=== PATIENT | male | born 1985 | race Caucasian/White ===

== ENCOUNTER 2025-01-16 19:42 | Emergency (ER) | payer BC, MEDICAID ==
[~2025-01-16] VITALS: Ht 175.3 cm; Wt 68.4 kg
[2025-01-16 20:18] VITALS: BP 126/83; PULSE 80; RESP 18; O2SAT 95
[2025-01-16] MEDS ORDERED: IBUP-1456 PO (20:57)
--- NOTE | 2025-01-16 20:57 | ED.PDOC ---
Musculoskeletal HPI Comments 39 YEAR OLD MALE PRESENTS TO ER WITH COMPLAINTS OF RIGHT 2ND TOE PAIN X 1 HOUR. PATIENT REPORTS THAT HE HIT HIS RIGHT 2ND TOE AGAINST A [employer] MAT 1 HOUR PRIOR TO ARRIVAL TO ER WHILE IN [facility] AND HAS SINCE BEEN EXPERIENCING PAIN/SWELLING/BRUISING TO RIGHT 2ND TOE. DENIES USE OF MEDICATIONS FOR CURRENT SYMPTOMS. NOTES HE DOES HAVE NUMBNESS/TINGLING TO RIGHT 2ND TOE AND PRESENTS TO ER AMBULATORY ON ARRIVAL, FAVORING LEFT LEG ON AMBULATION. DENIES ANKLE PAIN OR ANY FURTHER SYMPTOMS/COMPLAINTS Chief Complaint: Lower Extremity Time Seen by MD: 19:51 Primary Care Provider: ENDO Reviewed Notes: Nurses Notes, Medications, Allergies Allergies: Coded Allergies: No Known Drug Allergy (Verified Allergy, Unknown, 01/16/25) Home Meds Active Scripts Ibuprofen (Ibuprofen) 800 Mg Tab, 1 TAB PO TID PRN, #30 TAB 0 Refills Prov:BENJI MERCEDES 01/16/25 Information Source: Patient Mode of Arrival: Ambulatory Past Medical History PAST MEDICAL HISTORY: Denies Surgical History: Denies all surgeries Family History Family History: Unknown Social History Smoker: Non-Smoker Alcohol: Denies ETOH Use Drugs: Denies Drug Use Lives In: Home Constitutional: denies: chills, diaphoresis, fatigue, fever, malaise, sweats, weakness, others EENTM: denies: blurred vision, double vision, ear bleeding, ear discharge, ear drainage, ear pain, ear ringing, eye pain, eye redness, hearing loss, mouth pain, mouth swelling, nasal discharge, nose bleeding, nose congestion, nose pain, photophobia, tearing, throat pain, throat swelling, voice changes, others Respiratory: denies: cough, hemoptysis, orthopnea, SOB at rest, shortness of breath, SOB with excertion, stridor, wheezing, others Cardiovascular: denies: chest pain, dizzy spells, diaphoresis, Dyspnea on exertion, edema, irregular heart beat, left arm pain, lightheadedness, palpitations, PND, syncope, others Gastrointestinal: denies: abdomen distended, abdominal pain, blood streaked bowels, constipated, diarrhea, dysphagia, difficulty swallowing, hematemesis, melena, nausea, poor appetite, poor fluid intake, rectal bleeding, rectal pain, vomiting, others Genitourinary: denies: burning, dysuria, flank pain, frequency, hematuria, incontinence, penile discharge, penile sore, pain, testicle pain, testicle swelling, urgency, others Neurological: denies: dizziness, fainting, headache, left sided numbness, left sided weakness, numbness, paresthesia, pre-existing deficit, right sided numbness, right sided weakness, seizure, speech problems, tingling, tremors, weakness, others Musculoskeletal: reports: others ( STATED IN HPI) Integumetry: reports: others ( STATED IN HPI) Allergic/Immunocompromised: denies: Difficulty Healing, Frequent Infections, Hives, Itching, others Hematologic/Lymphatic: denies: anemia, blood clots, easy bleeding, easy bruising, swollen glands, others Endocrine: denies: excessive hunger, excessive sweating, excessive thirst, excessive urination, flushing, intolerance to cold, intolerance to heat, unexplained weight gain, unexplained weight loss, others Psychiatric: denies: anxiety, bipolar disorder, depression, hopeless, panic disorder, schizophrenia, sleepless, suicidal, others Physical Exam General Appearance: No Apparent Distress HEENT: PERRL/EOMI Neck: Full Range of Motion, Non-Tender, Normal Respiratory: Chest Non-Tender, Lungs Clear, No Accessory Muscle Use, No Respiratory Distress, Normal Breath Sounds Cardiovascular: No Murmur, No Gallop, Regular Rate/Rhythm Breast Exam: Deferred Gastrointestinal: NOT DONE Genitalia: Deferred Pelvic: Deferred Rectal: Deferred Extremities: Normal capillary refill, Normal range of motion Musculoskeletal : Extremity Location: Toe 2 (TTP/MILD SWELLING/ECCHYMOSIS NOTED TO RIGHT 2ND TOE. NO NAILBED INJURY/FURTHER SKIN CHANGES NOTED. PATIENT FAVORS LEFT LEG ON AMBULATION DUE TO PAIN LOCALIZED TO RIGHT 2ND TOE. 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 Was a procedure done?: No Sedation Sedation?: No Differential Diagnosis EXT Differential Diagnosis: Dislocation, Laceration, Neurovascular injury X-Ray, Labs, Meds, VS Vital Signs Date Time Temp Pulse Resp B/P (MAP) Pulse Ox O2 Delivery O2 Flow Rate FiO2 3/12/25 20:18 98.2 80 18 126/83 97 95 PATIENT: LESLEY HARVEYT: [id number]: [id number] : 1985 LOC: ER ROOM / BED: / AGE / SEX: 39 / M ADM STATUS: [facility] ER SERVICE 45 ORDERING PHYSICIAN: BENJI MERCEDES PROCEDURE(s): RTOE2 - R 2ND TOE XRAY REASON: right 2nd toe pain, r/o fracture ORDER NUMBER(s): [id number], ACCESSION NUMBER(s): [id number] EXAMINATIONS: 3 views of the right foot CLINICAL HISTORY: right 2nd toe pain, r/o fracture COMPARISON: None Findings and impression: Comminuted, mildly displaced and angulated fracture of the diaphysis of the 2nd proximal phalanx. ATED BY: BRUNO MACHADO MD DICTATED DATE/TIME: 01/16/252146 SIGNED BY: BRUNO MACHADO MD SIGNED DATE/TIME: 01/16/252146 CC: RIGHT 2ND TOE X-RAY REVIEWED PATIENT NEUROVASCULARLY INTACT AND IN NO DISTRESS PRIOR TO DISCHARGE CARMELA TAPE APPLIED POST-OP SHOE APPLIED ADVISED ON REST/NO STRENUOUS ACTIVITY, ELEVATION AND ALTERNATE ICE ON/OFF NEEDED FOR PAIN/SWELLING ADVISED TO FOLLOW UP WITH PCP AND [facility] IN 1-2 DAYS PATIENT VERBALIZED UNDERSTANDING AND AGREEABLE WITH CURRENT PLAN OF CARE ADVISED TO RETURN TO ER IMMEDIATELY IF SYMPTOMS WORSEN Images Reviewed?: Images reviewed and evaluated by me Time of 1ST Reevaluation: 20:52 Reevaluation 1ST: N/A Patient Education/Counseling: Diagnosis, Treatment, Prognosis, Need For Follow Up Family Education/Counseling: No Family Present Departure 1 Departure Time of Disposition: 21:32 Impression: Primary Impression: Toe fracture, right Qualified Codes: S92.501A - Displaced unspecified fracture of right lesser toe(s), initial encounter for closed fracture Disposition: HOME / SELF CARE / HOMELESS Condition: Stable e-Prescriptions Ibuprofen (Ibuprofen) 800 Mg Tab 1 TAB PO TID PRN, #30 TAB 0 Refills Prov: BENJI MERCEDES 01/16/25 Critical Care Note Critical Care Time?: No Stability Stability form required: No Heart Score Heart Score: Heart Score Response (Comments) Value History N/A 0 EKG N/A 0 Age N/A 0 Risk Factors N/A 0 Troponin N/A 0 Total 0 BENJI MERCEDES Jan 16, 2025 20:57
--- NOTE | 2025-01-16 21:50 | DVH ---
EXAMINATIONS: 3 views of the right foot CLINICAL HISTORY: right 2nd toe pain, r/o fracture COMPARISON: None Findings and impression: Comminuted, mildly displaced and angulated fracture of the diaphysis of the 2nd proximal phalanx.
== END 2025-01-16 21:45 | disposition home or self-care (01) ==
LOC: ER 19:42
DX: S92.511A Displaced fracture of proximal phalanx of right lesser toe(s), initial encounter for closed fracture (principal); X58.XXXA Exposure to other specified factors, initial encounter; Y93.89 Activity, other specified; Y92.89 Other specified places as the place of occurrence of the external cause; Y99.8 Other external cause status
CPT/HCPCS: 73660